=== PATIENT | female | born 1985 | race Two or more races ===

== ENCOUNTER 2020-12-29 17:19 | Inpatient (IN) | payer OTHER ==
[~2020-12-29] VITALS: Ht 177.8 cm; Wt 73.0 kg
[2020-12-30] MEDS ORDERED: NIKKI 3 MG-0.01 EACH (08:07)
== END 2021-01-03 11:18 | disposition home or self-care (01) | DRG 743 ==
LOC: OB/GYN 17:19
PROVIDERS: ADMIT Obstetrics & Gynecology; ATTEND Obstetrics & Gynecology
PROC: 30233N1 Transfusion of Nonautologous Red Blood Cells into Peripheral Vein, Percutaneous Approach (ICD-10-PCS; 2020-12-30)
PROC: 0UT90ZZ Resection of Uterus, Open Approach (ICD-10-PCS; principal; 2020-12-31 12:30)
DX: D25.2 Subserosal leiomyoma of uterus (principal); D64.9 Anemia, unspecified; N92.1 Excessive and frequent menstruation with irregular cycle; N72 Inflammatory disease of cervix uteri; N80.0 Endometriosis of uterus